=== PATIENT | female | born 1980 | race Caucasian/White ===

== ENCOUNTER 2016-11-26 12:55 | Emergency (ER) | payer MEDICAID ==
[~2016-11-26] VITALS: Ht 154.9 cm; Wt 72.1 kg
[2016-11-26 13:00] VITALS: BP_SYST 140
--- NOTE | 2016-11-26 13:00 | NUR ---
Pt. in room 7 , report given to Mandeep JACOBS
--- NOTE | 2016-11-26 13:05 | NUR ---
Pt c/o left sided cheek pain/swelling from upper left gum pain since last night. No tongue or throat swelling noted. Pt states she has dental appt on of next week.
--- NOTE | 2016-11-26 13:05 | NUR ---
Dr. Marquez at bedside examining the pt.
[2016-11-26] MEDS ORDERED: KETOROLAC TROMETHAMINE 60 MG/2 ML VIAL IM ONE (13:30)
[2016-11-26 14:00] VITALS: BP_SYST 128
--- NOTE | 2016-11-26 14:00 | NUR ---
Patient given written and verbal discharge instructions and verbalizes understanding. ER MD discussed with patient the results and treatment provided. Patient in stable condition. ID arm band removed. IV catheter removed intact and dressing applied, no active bleeding. Rx of penicillin, norco given. Patient educated on pain management and to follow up with PMD. Pain Scale . Opportunity for questions provided and answered.
== END 2016-11-26 14:00 | disposition home or self-care (01) ==
LOC: SED 12:55
DX: K04.7 Periapical abscess without sinus (principal); R03.0 Elevated blood-pressure reading, without diagnosis of hypertension
CPT/HCPCS: 96372; 99283; J1885